=== PATIENT | male | born 1995 | race Two or more races ===

== ENCOUNTER 2022-12-02 12:28 | Emergency (ER) | payer BC ==
[~2022-12-02] VITALS: Ht 175.3 cm; Wt 80.0 kg
[2022-12-02] MEDS ORDERED: HYDROcodone-ACET 5/325MG TAB PO ONE (17:15)
[2022-12-03] MEDS ORDERED: HYDROcodone-ACET 10/325MG TAB PO ONE (01:00)
[2022-12-03 03:10] VITALS: BP 100/70
== END 2022-12-03 03:24 | disposition short-term general hospital (02) ==
LOC: ER 12:28
DX: G93.6 Cerebral edema (principal); G93.89 Other specified disorders of brain; Z98.890 Other specified postprocedural states; Z20.822 Contact with and (suspected) exposure to COVID-19
CPT/HCPCS: 36415; 70450; 82962; 87426

== ENCOUNTER 2023-03-17 11:59 | Inpatient (IN) | payer BC ==
[~2023-03-17] VITALS: Ht 172.7 cm; Wt 72.8 kg
[2023-03-17] MEDS ORDERED: ACETAMINOPHEN 325 MG TAB PO ONE (12:45)
[2023-03-17 12:46] LABS: Basophils # (auto) 0 10 ^3/uL (0-0.2); Basophils % (auto) 0.3 % (0.0-2.0); Eosinophils # (auto) 0 10 ^3/uL (0-0.8); Hematocrit 40.2 % (41.0-53.0); Lymphocytes # (auto) 0.8 10 ^3/uL (0.4-5.4); Lymphocytes % (auto) 6.6 % (10.0-50.0); Mean Corpuscular Hemoglobin 28.2 pg (28.0-32.0); Mean Corpuscular Hgb Conc. 34.8 g/dL (32.0-36.0); Mean Corpuscular Volume 81.1 fL (80.0-100.0); Monocytes # (auto) 1.2 10 ^3/uL (0-1.3); Monocytes % (auto) 10.1 % (0.0-12.0); Neutrophils # (auto) 9.5 10 ^3/uL (1.6-8.6); Nucleated Red Blood Cells % 0.1 %; Red Blood Cells 4.95 10^6/uL (4.5-5.90); Red Cell Distribution Width 13.7 % (11.8-14.3); White Blood Cell 11.4 10^3/uL (4.4-10.8)
[2023-03-17 13:12] LABS: Albumin 3.3 g/dL (3.4-5.0); Calcium 8.6 mg/dL (8.5-10.1); Potassium 3.3 mmol/L (3.5-5.1)
[2023-03-17 13:15] LABS: BUN/Creatinine Ratio 9.2 (10.0-20.0); Total Protein 7.8 g/dL (6.4-8.2)
[2023-03-17] MEDS ORDERED: IOHEXOL 300 MG/ML 100ML BOTTLE IJ ONE (13:37)
[2023-03-17] MEDS ORDERED: cefTRIAXone 1GM/50ML D5W 50 ML IV ONE (14:30)
[2023-03-17] MEDS ORDERED: KETOROLAC TROMETH 30 MG/ML 1ML VIAL IV ONE (14:30)
[2023-03-17] MEDS ORDERED: SODIUM CHLORIDE 0.9% 1,000 ML IV ONE ×2 (14:30)
[2023-03-17] MEDS ORDERED: MORPHINE SULFATE INJ 2 MG/ml SYRG IV ONE (14:45)
[2023-03-17] MEDS ORDERED: MANNITOL FTV 25% 12.5 GM/50 ML 50 ML IV ONE (16:45)
[2023-03-17] MEDS ORDERED: ONDANSETRON HCL 4 MG/2 ML VIAL IV PRN (16:45)
[2023-03-17] MEDS ORDERED: MORPHINE SULFATE INJ 2 MG/ml SYRG IV PRN (16:45)
[2023-03-17] MEDS ORDERED: DOCUSATE SOD 100 MG CAP PO PRN (16:45)
[2023-03-17] MEDS ORDERED: POTASSIUM EFFERVESENT TAB 25 MEQ PO ONE (17:15)
[2023-03-17] MEDS: SODIUM CHLORIDE 0.9% 1,000 ML IV SCH (17:52)
[2023-03-17] MEDS: ACETAMINOPHEN 325 MG TAB PO PRN (19:49)
[2023-03-17 21:42] VITALS: BP_SYST 104; BP_SYST 112; BP_DIAS 64; BP_DIAS 74
[2023-03-18] VITALS (7 sets, daily range): BP systolic 97–127; BP diastolic 58–76
[2023-03-18] MEDS: SODIUM CHLORIDE 0.9% 1,000 ML IV SCH ×3 (01:05→17:45)
[2023-03-18] MEDS ORDERED: METH10CA PO (01:24)
[2023-03-18] MEDS ORDERED: MEMA1TAB3 PO (01:24)
[2023-03-18] MEDS ORDERED: DONE1TAB88 PO (01:24)
[2023-03-18] MEDS ORDERED: ASCO500T11 PO (01:24)
[2023-03-18] MEDS ORDERED: LEVE500T3 PO (01:24)
[2023-03-18 06:16] LABS: Potassium 3.3 mmol/L (3.5-5.1)
[2023-03-18 06:26] LABS: Albumin 2.7 g/dL (3.4-5.0); BUN/Creatinine Ratio 10.3 (10.0-20.0); Bilirubin, Total 0.9 mg/dL (0.2-1.0); Calcium 8.1 mg/dL (8.5-10.1); Total Protein 6.6 g/dL (6.4-8.2)
[2023-03-18 06:29] LABS: Basophils # (auto) 0 10 ^3/uL (0-0.2); Basophils % (auto) 0.2 % (0.0-2.0); Eosinophils # (auto) 0 10 ^3/uL (0-0.8); Lymphocytes # (auto) 0.9 10 ^3/uL (0.4-5.4); Lymphocytes % (auto) 8.9 % (10.0-50.0); Mean Corpuscular Hemoglobin 28.3 pg (28.0-32.0); Monocytes # (auto) 1.1 10 ^3/uL (0-1.3); Monocytes % (auto) 11.1 % (0.0-12.0); Neutrophils # (auto) 7.7 10 ^3/uL (1.6-8.6); Neutrophils % (auto) 79.8 % (37.0-80.0); Nucleated Red Blood Cells % 0.4 %; Red Blood Cells 4.57 10^6/uL (4.5-5.90); Red Cell Distribution Width 13.9 % (11.8-14.3); White Blood Cell 9.6 10^3/uL (4.4-10.8)
[2023-03-18] MEDS: cefTRIAXone 1GM/50ML D5W 50 ML IV SCH (08:06)
[2023-03-18] MEDS: METHYLPHENIDATE 10 MG PO SCH (10:00)
[2023-03-18] MEDS ORDERED: POTASSIUM CHL 20 Meq TABLET PO ONE (11:30)
[2023-03-18] MEDS: MEMANTINE HCL 5 MG TAB PO SCH ×2 (12:37→21:26)
[2023-03-18] MEDS: levETIRAcetam 500 MG TAB PO SCH ×2 (12:37→21:26)
[2023-03-18] MEDS: ACETAMINOPHEN 325 MG TAB PO PRN (12:38)
[2023-03-18] MEDS: DONEPEZIL HYDROCHLORIDE 5 MG TAB PO SCH (21:26)
[2023-03-18] MEDS: ASCORBIC ACID 500 MG TAB PO SCH (21:26)
[2023-03-19] VITALS (7 sets, daily range): BP systolic 107–120; BP diastolic 59–80
[2023-03-19] MEDS: SODIUM CHLORIDE 0.9% 1,000 ML IV SCH ×4 (00:47→21:31)
[2023-03-19 09:30] LABS: INR 1.04 (0.9-1.15)
[2023-03-19] MEDS ORDERED: TAMSULOSIN HYDROCHLORIDE 0.4 MG CAP PO ONE ×2 (10:00)
[2023-03-19] MEDS: DONEPEZIL HYDROCHLORIDE 5 MG TAB PO SCH ×2 (10:55→21:33)
[2023-03-19] MEDS: MEMANTINE HCL 5 MG TAB PO SCH ×2 (10:55→21:33)
[2023-03-19] MEDS: cefTRIAXone 1GM/50ML D5W 50 ML IV SCH (10:55)
[2023-03-19] MEDS: ASCORBIC ACID 500 MG TAB PO SCH ×2 (10:55→21:33)
[2023-03-19] MEDS: levETIRAcetam 500 MG TAB PO SCH ×2 (10:55→21:33)
[2023-03-19] MEDS: ACETAMINOPHEN 325 MG TAB PO PRN (10:56)
[2023-03-19 11:19] LABS: Calcium 8.2 mg/dL (8.5-10.1); Potassium 3.1 mmol/L (3.5-5.1)
[2023-03-19] MEDS: METHYLPHENIDATE 10 MG PO SCH (16:39)
[2023-03-20] VITALS (7 sets, daily range): BP systolic 102–116; BP diastolic 62–84
[2023-03-20 06:44] LABS: BUN/Creatinine Ratio 12.1 (10.0-20.0); Calcium 8.8 mg/dL (8.5-10.1)
[2023-03-20] MEDS: METHYLPHENIDATE 10 MG PO SCH ×2 (10:00→12:03)
[2023-03-20] MEDS: levETIRAcetam 500 MG TAB PO SCH ×2 (10:37→21:45)
[2023-03-20] MEDS: DONEPEZIL HYDROCHLORIDE 5 MG TAB PO SCH ×2 (10:37→21:45)
[2023-03-20] MEDS: MEMANTINE HCL 5 MG TAB PO SCH ×2 (10:37→21:45)
[2023-03-20] MEDS: cefTRIAXone 1GM/50ML D5W 50 ML IV SCH (10:37)
[2023-03-20] MEDS: ASCORBIC ACID 500 MG TAB PO SCH ×2 (10:37→21:45)
[2023-03-20] MEDS: SODIUM CHLORIDE 0.9% 1,000 ML IV SCH ×2 (11:25→21:48)
[2023-03-21] MEDS: SODIUM CHLORIDE 0.9% 1,000 ML IV SCH ×2 (04:05→12:25)
[2023-03-21 05:00] VITALS: BP 96/57
[2023-03-21 09:00] VITALS: BP 100/62
[2023-03-21] MEDS: levETIRAcetam 500 MG TAB PO SCH (10:58)
[2023-03-21] MEDS: ASCORBIC ACID 500 MG TAB PO SCH (10:58)
[2023-03-21] MEDS: DONEPEZIL HYDROCHLORIDE 5 MG TAB PO SCH (10:58)
[2023-03-21] MEDS: cefTRIAXone 1GM/50ML D5W 50 ML IV SCH (10:58)
[2023-03-21] MEDS: MEMANTINE HCL 5 MG TAB PO SCH (10:58)
[2023-03-21] MEDS: METHYLPHENIDATE 10 MG PO SCH (12:00)
[2023-03-21 13:00] VITALS: BP 91/55
[2023-03-21] MEDS ORDERED: LIDOCAINE 2%HCL (LOCAL ANESTH.) INJ 20ML MDV ONE (13:28)
[2023-03-21 17:00] VITALS: BP 100/61
== END 2023-03-21 17:47 | disposition home or self-care (01) | DRG 872 ==
LOC: ER 11:59 → EAST 16:40
PROVIDERS: ADMIT Nurse Practitioner Family; ATTEND Internal Medicine
DX: A41.9 Sepsis, unspecified organism (principal); E87.1 Hypo-osmolality and hyponatremia; N13.6 Pyonephrosis; N17.9 Acute kidney failure, unspecified; Z20.822 Contact with and (suspected) exposure to COVID-19; E87.6 Hypokalemia
CPT/HCPCS: 36415; 71045; 74018; 74177; 76775; 80048; 80053; 83605; 83690; 85025; 85610; 87040; 87426; 87804; 96361; 96365; 96366; 96375; G0378; J0696; J1885

== ENCOUNTER 2023-08-23 07:07 | Emergency (ER) | payer BC ==
[~2023-08-23] VITALS: Ht 172.7 cm; Wt 88.0 kg
[~2023-08-23 07:07] MED LIST: ASCO500T11 PO; DONE1TAB88 PO; LEVE500T3 PO; MEMA1TAB3 PO; METH10CA PO
[2023-08-23] MEDS ORDERED: ACETAMINOPHEN 650 MG RECT SUPP PR ONE (07:30)
[2023-08-23] MEDS ORDERED: LORazepam 2MG/ML-1ML VIAL IV ONE ×3 (07:30→10:15)
[2023-08-23] MEDS ORDERED: SODIUM CHLORIDE 0.9% 1,000 ML IV ONE (07:30)
[2023-08-23 08:04] LABS: Basophils # (auto) 0.1 10 ^3/uL (0-0.2); Basophils % (auto) 0.6 % (0.0-2.0); Eosinophils % (auto) 0.3 % (0.0-7.0); Hemoglobin 17.2 g/dL (13.5-17.5); Lymphocytes # (auto) 1.8 10 ^3/uL (0.4-5.4)
[2023-08-23 08:06] LABS: Eosinophils # (auto) 0 10 ^3/uL (0-0.8); Hematocrit 51.1 % (41.0-53.0); Lymphocytes % (auto) 10.6 % (10.0-50.0); Mean Corpuscular Hemoglobin 28.3 pg (28.0-32.0); Mean Corpuscular Hgb Conc. 33.6 g/dL (32.0-36.0); Mean Corpuscular Volume 84.2 fL (80.0-100.0); Monocytes # (auto) 0.9 10 ^3/uL (0-1.3); Monocytes % (auto) 5.4 % (0.0-12.0); Neutrophils # (auto) 13.9 10 ^3/uL (1.6-8.6); Neutrophils % (auto) 83.1 % (37.0-80.0); Nucleated Red Blood Cells % 0.1 %; Red Blood Cells 6.07 10^6/uL (4.5-5.90); Red Cell Distribution Width 13.2 % (11.8-14.3); White Blood Cell 16.7 10^3/uL (4.4-10.8)
[2023-08-23 08:14] LABS: INR 1.05 (0.9-1.15); Partial Thromboplastin Time 31.2 SEC (24.5-34.5)
[2023-08-23 08:27] LABS: Alanine Aminotransferase 36 U/L (7-40); Albumin 5.5 g/dL (3.2-4.8); Alkaline Phosphatase 108 U/L (46-116); Anion Gap 18 (5-15); Aspartate Aminotransferase 21 U/L (13-40); BUN/Creatinine Ratio 6.5 (10.0-20.0); Bilirubin, Total 0.9 mg/dL (0.2-1.0); Blood Alcohol < 3.0 mg/dL (<10); Blood Urea Nitrogen 7 mg/dL (9-23); Calcium 9.8 mg/dL (8.5-10.1); Carbon Dioxide 22 mmol/L (20-30); Chloride 101 mmol/L (98-107); Glucose 167 mg/dL (74-106); Potassium 3.1 mmol/L (3.5-5.1); Sodium 141 mmol/L (136-145); Total Protein 8.8 g/dL (5.7-8.2)
[2023-08-23 08:55] LABS: Lactic Acid w/Reflex 8.1 mmol/L (0.4-2.0)
[2023-08-23] MEDS ORDERED: metroNIDAZOLE 500MG/100ML 100 ML IV ONE (09:15)
[2023-08-23] MEDS ORDERED: cefTRIAXone 1GM/50ML D5W 50 ML IV ONE (09:15)
[2023-08-23 09:56] LABS: Amphetamine Screen, Urine Neg (NEGATIVE); Barbiturate Scree,Urine Neg (NEGATIVE); Benzodiazephine Screen, Urine Neg (NEGATIVE); Cannabinoid Screen, Urine Neg (NEGATIVE); Cocaine Screen, Urine Neg (NEGATIVE); Opiate Scree,Urine Neg (NEGATIVE); Phencyclidine Screen, Urine Neg (NEGATIVE)
[2023-08-23] MEDS ORDERED: ONDANSETRON HCL 4 MG/2 ML VIAL IV ONE (10:15)
[2023-08-23] MEDS ORDERED: ONDANSETRON HCL 4 MG/2 ML VIAL ONE (10:16)
[2023-08-23] MEDS ORDERED: LABETALOL HCL 5 MG/ML 4ML SYRINGE IV ONE (10:30)
[2023-08-23] MEDS: levETIRAcetam 1000 mg/100ml 100 ML IV ONE ×2 (10:30→10:50)
[2023-08-23 11:45] VITALS: PULSE 135; RESP 28; O2SAT 98
[2023-08-23 11:46] VITALS: BP 136/87; PULSE 121; RESP 22; TEMP 99.5; O2SAT 96
== END 2023-08-23 09:10 | disposition short-term general hospital (02) ==
LOC: ER 07:07
DX: A41.9 Sepsis, unspecified organism (principal); I62.9 Nontraumatic intracranial hemorrhage, unspecified; R56.9 Unspecified convulsions
CPT/HCPCS: 36415; 70450; 71045; 74018; 80053; 80307; 80320; 83605; 85025; 85610; 85730; 87040; 93005; 96361; 96365; 96366; 96367; 96368; 96375; 99291; J0696; J1953; J2060; J2405; J3490; J7030

== ENCOUNTER 2024-04-03 21:07 | Inpatient (IN) | payer BC, MEDICAID ==
[~2024-04-03] VITALS: Ht 170.2 cm; Wt 81.1 kg
[2024-04-03] MEDS: levETIRAcetam 1000 mg/100ml 100 ML IV ONE (21:36)
[2024-04-03 22:05] LABS: Basophils # (auto) 0 10 ^3/uL (0-0.2); Basophils % (auto) 0.6 % (0.0-2.0); Eosinophils # (auto) 0.1 10 ^3/uL (0-0.8); Eosinophils % (auto) 1.6 % (0.0-7.0); Hematocrit 44.3 % (41.0-53.0); Hemoglobin 15.1 g/dL (13.5-17.5); Lymphocytes # (auto) 1.3 10 ^3/uL (0.4-5.4); Mean Corpuscular Hemoglobin 28.6 pg (28.0-32.0); Mean Corpuscular Volume 84.1 fL (80.0-100.0); Monocytes # (auto) 0.3 10 ^3/uL (0-1.3); Monocytes % (auto) 4.3 % (0.0-12.0); Neutrophils # (auto) 5.5 10 ^3/uL (1.6-8.6); Neutrophils % (auto) 75.5 % (37.0-80.0); Red Blood Cells 5.27 10^6/uL (4.5-5.90); Red Cell Distribution Width 13.4 % (11.8-14.3); White Blood Cell 7.2 10^3/uL (4.4-10.8)
[2024-04-03 22:10] VITALS: PULSE 93; RESP 22; O2SAT 97
[2024-04-03 22:21] LABS: Alanine Aminotransferase 25 U/L (7-40); Albumin 4.7 g/dL (3.2-4.8); Alkaline Phosphatase 79 U/L (46-116); Anion Gap 6 (5-15); Aspartate Aminotransferase 12 U/L (13-40); BUN/Creatinine Ratio 10.6 (10.0-20.0); Bilirubin, Total 0.5 mg/dL (0.2-1.0); Blood Urea Nitrogen 10 mg/dL (9-23); Calcium 9.6 mg/dL (8.5-10.1); Carbon Dioxide 28 mmol/L (20-30); Chloride 106 mmol/L (98-107); Glucose 95 mg/dL (74-106); Potassium 3.8 mmol/L (3.5-5.1); Sodium 140 mmol/L (136-145); Total Protein 7.5 g/dL (5.7-8.2)
[2024-04-03] MEDS: LORazepam 2MG/ML-1ML VIAL IV ONE (22:50)
[2024-04-03] MEDS: ONDANSETRON HCL 4 MG/2 ML VIAL IV ONE (22:50)
[2024-04-03] MEDS: SODIUM CHLORIDE 0.9% 1,000 ML IV ONE (22:50)
[2024-04-04] VITALS (8 sets, daily range): BP systolic 105–124; BP diastolic 64–79; PULSE 64–101; RESP 16–20; TEMP 97.8–99; O2SAT 94–100
[2024-04-04] MEDS ORDERED: ONDANSETRON HCL 4 MG/2 ML VIAL IV PRN (00:45)
[2024-04-04] MEDS ORDERED: LORazepam 2MG/ML-1ML VIAL IV PRN (00:45)
[2024-04-04] MEDS ORDERED: DONE5TAB80 PO (03:08)
[2024-04-04] MEDS: levETIRAcetam 500 mg/100ml 100 ML IV SCH (09:54)
[2024-04-04] MEDS: ASCORBIC ACID 500 MG TAB PO SCH (09:54)
[2024-04-04] MEDS: LACOSAMIDE 50 MG TAB PO SCH (09:55)
[2024-04-04] MEDS: DONEPEZIL HYDROCHLORIDE 5 MG TAB PO SCH (10:41)
[2024-04-05] VITALS (7 sets, daily range): BP systolic 97–105; BP diastolic 62–67; PULSE 77–102; RESP 16–18; TEMP 36.7; O2SAT 94–99
[2024-04-05 07:01] LABS: Calcium 9.5 mg/dL (8.5-10.1); Chloride 105 mmol/L (98-107); Potassium 3.6 mmol/L (3.5-5.1); Sodium 138 mmol/L (136-145)
[2024-04-05 07:02] LABS: Anion Gap 7 (5-15); Carbon Dioxide 26 mmol/L (20-30)
[2024-04-05 07:07] LABS: Glucose 99 mg/dL (74-106)
[2024-04-05 07:08] LABS: BUN/Creatinine Ratio 6.9 (10.0-20.0); Blood Urea Nitrogen 5 mg/dL (9-23)
[2024-04-05] MEDS: ACETAMINOPHEN 325 MG TAB PO PRN (13:44)
== END 2024-04-05 15:15 | disposition home or self-care (01) | DRG 53 ==
LOC: EDBD 21:07 → ER 21:07 → WEST WING 04-04 00:38 → OVERFLOW 04-04 00:38 → WEST WING 04-04 02:14
PROVIDERS: ADMIT Nurse Practitioner; ATTEND Family Medicine
DX: G40.109 Localization-related (focal) (partial) symptomatic epilepsy and epileptic syndromes with simple partial seizures, not intractable, without status epilepticus (principal); R47.01 Aphasia; Z87.820 Personal history of traumatic brain injury; Z98.2 Presence of cerebrospinal fluid drainage device; Z91.199 Patient's noncompliance with other medical treatment and regimen due to unspecified reason
CPT/HCPCS: 36415; 70450; 80048; 80053; 84484; 85025; 93005; 96361; 96374; 96375; G0378; J2405

== ENCOUNTER 2024-05-27 23:51 | Emergency (ER) | payer MEDICAID, OTHER ==
[~2024-05-27] VITALS: Ht 175.3 cm; Wt 78.2 kg
[~2024-05-27 23:51] MED LIST changes: +DONE5TAB80 PO
[2024-05-28] MEDS: LORazepam 2MG/ML-1ML VIAL ONE (00:33)
[2024-05-28] MEDS: HYDROcodone-ACET 5/325MG TAB PO ONE (00:33)
[2024-05-28] MEDS: ONDANSETRON HCL 4 MG/2 ML VIAL IV ONE (00:33)
[2024-05-28 00:42] VITALS: TEMP 98.7
[2024-05-28 00:45] VITALS: PULSE 98; RESP 20; O2SAT 92
[2024-05-28 00:51] LABS: Basophils # (auto) 0.1 10 ^3/uL (0-0.2); Basophils % (auto) 0.6 % (0.0-2.0); Eosinophils # (auto) 0.2 10 ^3/uL (0-0.8); Eosinophils % (auto) 1.8 % (0.0-7.0); Hematocrit 45.9 % (41.0-53.0); Hemoglobin 16.2 g/dL (13.5-17.5); Lymphocytes # (auto) 3.6 10 ^3/uL (0.4-5.4); Lymphocytes % (auto) 34.2 % (10.0-50.0); Mean Corpuscular Hemoglobin 29.7 pg (28.0-32.0); Mean Corpuscular Hgb Conc. 35.3 g/dL (32.0-36.0); Mean Corpuscular Volume 84.1 fL (80.0-100.0); Monocytes # (auto) 0.7 10 ^3/uL (0-1.3); Monocytes % (auto) 6.5 % (0.0-12.0); Neutrophils % (auto) 56.9 % (37.0-80.0); Red Blood Cells 5.47 10^6/uL (4.5-5.90); White Blood Cell 10.6 10^3/uL (4.4-10.8)
[2024-05-28] MEDS: LORazepam 2MG/ML-1ML VIAL IV ONE (00:55)
[2024-05-28 01:04] LABS: Chloride 102 mmol/L (98-107); Potassium 3.5 mmol/L (3.5-5.1); Sodium 140 mmol/L (136-145)
[2024-05-28 01:06] LABS: Anion Gap 17 (5-15); Carbon Dioxide 21 mmol/L (20-30)
[2024-05-28 01:11] LABS: BUN/Creatinine Ratio 12.9 (10.0-20.0); Blood Urea Nitrogen 11 mg/dL (9-23); Glucose 113 mg/dL (74-106)
[2024-05-28] MEDS ORDERED: ACET500T58 PO (01:48)
[2024-05-28 02:00] VITALS: BP 113/69; PULSE 91; RESP 17; O2SAT 97
== END 2024-05-28 02:43 | disposition home or self-care (01) ==
LOC: ER 23:51
DX: R51.9 Headache, unspecified (principal); Z87.820 Personal history of traumatic brain injury; Z79.899 Other long term (current) drug therapy
CPT/HCPCS: 36415; 70450; 80048; 82962; 84484; 85025; 93005; 96374; 99285; J2060; J2405